=== PATIENT | female | born 2005 | race Caucasian/White ===

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

== ENCOUNTER 2023-05-06 01:36 | Outpatient (CLI) | payer BC, SELFPAY ==
[2023-05-06 12:17] LABS: Absolute Basophil Count 0.02 10^3/uL (0.0-0.2); Absolute Eosinophil Count 0.08 10^3/uL (0.0-0.7); Absolute Lymphocyte Count 1.77 10^3/uL (1.2-3.4); Absolute Monocyte Count 0.38 10^3/uL (0.1-0.8); Absolute Neutrophil Count 2.69 10^3/uL (1.2-6.7); Basophils % 0.4; Eosinophils % 1.6; HCT 42.1 % (36.0-46.0); HGB 14.3 g/dL (11.2-15.7); Lymphocytes % 35.8; MCH 30.2 pg (27.0-33.0); MCV 89 fL (80-95); MPV 9.9 fL (8.0-11.0); Monocytes % 7.7; Neutrophils % 54.5; Platelet Count 248 10^3/uL (130-400); RBC 4.74 10^6/uL (3.93-5.22); RDW 13.1 % (11.7-14.6); RDW-SD 42.8 fL; WBC 4.94 10^3/uL (4.4-10.8)
[2023-05-06 12:39] LABS: Ferritin 15 ng/mL (8-252)
[2023-05-06 13:17] LABS: Iron 101 ug/dL (50-170); Total Iron Binding Capacity 487 ug/dL (250-450)
== END 2023-05-06 01:37 | disposition home or self-care (01) ==
LOC: LBO 01:36
PROVIDERS: PCP Nurse Practitioner Pediatrics; Visit Provider Pediatrics
DX: D50.9 Iron deficiency anemia, unspecified (principal)
CPT/HCPCS: 36415; 82728; 83540; 83550; 85025

== ENCOUNTER 2025-05-02 16:11 | Outpatient (CLI) | payer BC, SELFPAY ==
--- NOTE | 2025-05-02 | DI.RAD_ITS ---
Exam(s) XR HIP RT COMPLETE AP PELVIS EXAM: XR HIP RT COMPLETE AP PELVIS CLINICAL HISTORY: Chronic rt hip pain x 2 months, M25.551, other chronic pain, G89.29. TECHNIQUE: 2D digital imaging was performed. COMPARISON: No exams were available for comparison FINDINGS: Two views: No evidence of pelvic nor hip fractures. No hip dysplasia. No hip joint space narrowing. No evidence of avascular necrosis of the hips. Additional frog-lateral view of the right hip reveals no significant findings. Sacroiliac joints appear unremarkable. Bone density in the pelvis and hips is normal. An IUD is noted. IMPRESSION: No significant osseous findings in the pelvis and hips. DATA REPOSITORY: RADIATION DOSE DELIVERED:
== END 2025-05-02 16:31 ==
LOC: DI 16:11
PROVIDERS: PCP Nurse Practitioner Pediatrics; Visit Provider Pediatrics
DX: M25.551 Pain in right hip (principal); G89.29 Other chronic pain
CPT/HCPCS: 73502

== ENCOUNTER 2025-08-19 16:53 | Outpatient (CLI) | payer BC, SELFPAY ==
[2025-08-19 17:48] LABS: TSH (W/Ref FT4) 0.58 uIU/mL (0.55-4.78)
== END 2025-08-19 16:54 | disposition home or self-care (01) ==
LOC: LBO 16:53
PROVIDERS: PCP Nurse Practitioner Pediatrics; Visit Provider Obstetrics & Gynecology
DX: L70.9 Acne, unspecified (principal); N92.6 Irregular menstruation, unspecified
CPT/HCPCS: 36415; 84403; 84443